=== PATIENT | male | born 1965 | race Caucasian/White ===

== ENCOUNTER 2016-04-06 21:43 | Emergency (ER) | payer BC ==
[2016-04-06] MEDS ORDERED: NORMAL SALINE 1,000 ML IV ONE (22:10)
--- NOTE | 2016-04-06 22:22 | ERNOTE ---
Medical Problem HPI - General Chief Complaint: General Assessment Time Seen by Provider: 04/06/16 22:14 Source: patient Exam Limitations: no limitations - Immun/Allergies/Home Medications Immunizations: IMMUNIZATION HX Immunizations Up to Date No History of Influenza Vaccine No Hx Pneumococcal Vaccination No Allergies/Adverse Reactions: Allergies No Known Allergies Allergy (Unverified 03/25/14 13:22) Home Medications: HOME MEDICATIONS Ondansetron HCl [Zofran] 1 - 2 mg PO Q8H PRN #10 tab 04/07/16 [Last Taken Unknown] - History of Present History Narrative: pt has had fatigue and shortness of breath for 3-5 days. Today he began to have N/V/D and had a syncopal episode on the toilet. striking his face on the wall Timing: getting worse Severity: moderate Review of Systems - Review of Systems Constitutional: Present: recent illness, chills, diaphoresis, fatigue EYE: Present: no symptoms reported ENT: Present: no symptoms reported Respiratory: Present: no symptoms reported Cardiology: Present: no symptoms reported Gastrointestinal/Abdominal: Present: See HPI Genitourinary: Present: decreased urinary output Musculoskeletal: Present: no symptoms reported Skin: Present: no symptoms reported Neurological: Present: no symptoms reported Endocrine: Present: no symptoms reported Hematologic/Lymphatic: Present: no symptoms reported - Patient's Past Medical History Patient History - Medical: No pertinent hx Patient History - Cancer: No Hx of Cancer - Social History Living Situations: home Smoking Status: Never smoker Alcohol Use: occasionally Drug Use: none Physical Exam - Physical Exam General Appearance: Present: wd/wn, alert, mild distress, sleeping/easy to arouse Eye Exam: Normal inspection: bilateral, PERRL: bilateral, EOMI: bilateral Ears, Nose, Throat: Present: other - abrasions, nose and forehead Neck: Present: normal inspection, nontender, supple, full range of motion Respiratory: Present: no respiratory distress, normal breath sounds, no accessory muscle use, chest nontender, lungs clear Cardiovascular/Chest: Present: regular rate, rhythm, no murmur, normal peripheral pulses Gastrointestinal/Abdominal: Present: tenderness - diffuse, abnormal bowel sounds - hyperactive Back Exam: Present: normal inspection, normal range of motion Extremity Exam: Present: normal inspection, normal range of motion Neurological Exam: Present: alert, oriented Skin Exam: Present: other - abrasions on forehead and nose Lymphatic Exam: Present: no adenopathy ED Progress - Results and Orders Patient's Lab Results:: I have reviewed the patient's lab results. Results and Orders: Laboratory Tests 04/06/16 04/06/16 04/06/16 22:35 22:35 23:59 WBC 9.6 Hgb 17.4 Hct 51.7 Plt Count 207 Sodium 141 Potassium 4.0 Chloride 103 Carbon Dioxide 26.7 Anion Gap 15.3 H BUN 19 Creatinine 1.32 Random Glucose 140 H Calcium 8.4 Total Bilirubin 0.9 AST 44 ALT 120 H Alkaline Phosphatase 46 L Total Protein 7.3 Albumin 3.9 Urine Color Yellow Urine Appearance Clear Urine pH 6.0 Ur Specific [place] 1.025 Urine Protein 30 H Urine Glucose (UA) Negative Urine Ketones 5 Urine Blood Negative Urine Nitrate Negative Urine Bilirubin 1 H Urine Ictotest Negative Prot Sulfosalicylic Acd Negative Urine Urobilinogen Normal Ur Leukocyte Esterase Negative Urine RBC 0-5 Urine WBC 0-5 Ur Epithelial Cells 0-5 Urine Bacteria None seen Urine Culture Comments No culture indicated - Vital Signs Patient's Vital Signs:: I have reviewed the patient's vital signs. Vital Signs: Vital Signs 04/06/16 21:53 Temperature 36.9 C Pulse Rate 59 L Respiratory 18 Rate Blood Pressure 93/53 O2 Sat by Pulse 93 Oximetry - Progress/Reassessment Chief Complaint: General Assessment Departure - Departure Clinical Impression: Syncope, vasovagal Disposition: Home self-care Condition: Fair Instructions: Rotavirus Infection, Adult, Rehydration, Adult, Vasovagal Syncope , Adult Additional Instructions: clear liquids for 6-12 hours after any vomiting. Follow up if not improving Prescriptions: Ondansetron HCl [Zofran] 1 - 2 mg PO Q8H PRN #10 tab PRN Reason: Nausea
[2016-04-06 22:38] LABS: Hematocrit 51.7 % (42.0-52.0); Hemoglobin 17.4 gm/dL (13.5-18.0); Mean Cell Volume 90.7 fl (78-100); Mean Corpuscular Hemoglobin 30.5 pg (27-31); Mean Corpuscular Hgb Conc 33.7 g/dl (32-36); Neutrophil # 8.6 K/mm3 (1.3-6.0); Platelet Count 207 K/mm3 (150-450); Red Cell Distribution Width 12.3 % (11.5-14.0); White Blood Count 9.6 K/mm3 (4.0-10.5)
[2016-04-06 22:54] LABS: Albumin * 3.9 gm/dl (3.4-5.0); Anion Gap 15.3 mmol/L (6.8-13.8); BUN/Creatinine Ratio 14.4 (9.0-21.6); Bilirubin, Total 0.9 mg/dL (0.0-1.1); Ca. Corrected For Albumin 8.2 mg/dL (8.4-10.2); Calcium * 8.4 mg/dL (7.9-10.9); Carbon Dioxide 26.7 mmol/L (24-32.6); Total Protein 7.3 gm/dL (6.2-8.2)
[2016-04-07 00:14] LABS: Urine Bilirubin 1 mg/dl (NEGATIVE); Urine Blood Negative /ul (NEGATIVE); Urine Ketone 5 mg/dL (NEGATIVE); Urine Nitrite Negative (NEGATIVE); Urine Protein 30 mg/dL (NEGATIVE); Urine Specific Gravity 1.025 SP.GR. (1.005-1.030); Urine Urobilinogen Normal (NORMAL)
[2016-04-07 00:15] LABS: Urine Appearance Clear; Urine Bacteria None Seen; Urine Color Yellow; Urine RBC 0-5 /hpf (0-5); Urine WBC 0-5 /hpf (0-5)
[2016-04-07] MEDS ORDERED: ONDANSETRON 4 MG TAB.RAPDIS PO ONE (00:48)
[2016-04-07 02:04] VITALS: BP 113/54
== END 2016-04-07 00:50 | disposition home or self-care (01) ==
LOC: ER 21:43
DX: R55 Syncope and collapse (principal)

== ENCOUNTER 2016-12-02 18:19 | Emergency (ER) | payer BC ==
[2016-12-02] MEDS ORDERED: KETOROLAC TROMETHAMINE 30 MG/ML VIAL IV ONE (19:01)
[2016-12-02] MEDS ORDERED: ACETAMINOPHEN 500 MG TABLET PO ONE (19:01)
[2016-12-02] MEDS ORDERED: KETOROLAC TROMETHAMINE 30 MG/ML VIAL ONE (19:03)
--- NOTE | 2016-12-02 19:09 | ERNOTE ---
Medical Problem HPI - Narrative Date of Service: 12/02/16 - General Chief Complaint: Fever Time Seen by Provider: 12/02/16 18:43 Source: patient, RN notes reviewed, old records Exam Limitations: no limitations - Immun/Allergies/Home Medications Immunizations: IMMUNIZATION HX Immunizations Up to Date No: unsure History of Influenza Vaccine No Hx Pneumococcal Vaccination No Allergies/Adverse Reactions: Allergies No Known Allergies Allergy (Unverified 03/25/14 13:22) Home Medications: HOME MEDICATIONS Amoxicillin/Potassium Clav [Augmentin 875-125 Tablet] 875 mg PO BID 12/02/16 [ Last Taken Unknown] predniSONE [Prednisone] 2 tab PO DAILY #8 tab 12/02/16 [Last Taken Unknown] - History of Present History Narrative: 51 year old male presents to the ER for a sore throat and weakness that began 4 days ago. He was seen in the walk in clinic yesterday. He tested negative for strep throat. He was given Rocephin 1 Gm and started on Augmentin. He was also given a one time dose of prednisone. He was febrile at that time. He currently has a 39.3 temp despite having ibuprofen less than 6 hours ago. He reports severe throat pain and difficulty swallowing. He denies a cough or sinus congestion. He also denies any sick contacts. Date (Duration): 11/28/16 Review of Systems - Review of Systems Constitutional: Present: fever, chills, malaise EYE: Present: no symptoms reported ENT: Present: sore throat. Absent: ear pain, nose congestion Respiratory: Absent: shortness of breath, cough Cardiology: Absent: chest pain, syncope Gastrointestinal/Abdominal: Present: eating less. Absent: nausea, vomiting, abdominal pain, drinking less Genitourinary: Absent: hematuria, decreased urinary output Musculoskeletal: Present: muscle pain, joint pain Skin: Absent: rash, lesions Neurological: Present: dizziness/light-headedness. Absent: headache Endocrine: Present: no symptoms reported Hematologic/Lymphatic: Present: no symptoms reported Psych: Present: no symptoms reported - Patient's Past Medical History Patient History - Medical: No pertinent hx Patient History - Cardiac/Respiratory: CVA/Stroke Patient History - Cancer: No Hx of Cancer Patient History - Surgical Procedures: Orthopedic Patient History - Other: None - Social History Living Situations: significant other Abuse History: No History of abuse Psych History: No pertinent hx Smoking Status: Never smoker Have you smoked in the past 12 months: No Do you dip or chew tobacco: Yes Alcohol Use: occasionally Drug Use: none - Immunizations Immunizations Up to Date: No - unsure Hx Pneumococcal Vaccination: No History of Influenza Vaccine: No Physical Exam - Physical Exam General Appearance: Present: wd/wn, alert, mild distress, other - Appears uncomfortable Eye Exam: Normal inspection: bilateral, PERRL: bilateral Ears, Nose, Throat: Present: pharyngeal erythema, tonsillar swelling. Absent: abnormal TM (R), abnormal TM (L), nasal congestion, sinus pain/drainage, tonsillar exudate, dry mucous membranes Neck: Present: normal inspection, nontender, supple, full range of motion Respiratory: Present: no respiratory distress, normal breath sounds, no accessory muscle use, lungs clear Cardiovascular/Chest: Present: regular rate, rhythm, no murmur Extremity Exam: Present: normal inspection, normal range of motion, no edema Neurological Exam: Present: alert, oriented, normal mood/affect, no motor/ sensory deficits Skin Exam: Present: normal color, warm/dry ED Progress - Results and Orders Patient's Lab Results:: I have reviewed the patient's lab results. - Vital Signs Patient's Vital Signs:: I have reviewed the patient's vital signs. Vital Signs: Vital Signs 12/02/16 18:33 Temperature 39.3 C H Pulse Rate 121 H Respiratory 18 Rate Blood Pressure 103/54 O2 Sat by Pulse 99 Oximetry - Progress/Reassessment Chief Complaint: Fever Progress:: Improved Plan - Plan Plan: Temp improving with Tylenol. Patient has no symptoms aside from his sore throat to suggest any other etiology for his fever aside from pharyngitis. 2 day strep from yesterday is still pending. Lactic acid and WBC were normal today. A blood culture is pending. SoluMedrol given IV for throat pain and inflammation and rx for 4 days of prednisone. To continue Augmentin. Agreeable to returning over the weekend if symptoms worsen or on Monday for recheck if no improvement. Departure - Departure Clinical Impression: Fever Qualifiers: Fever type: unspecified Qualified Code(s): R50.9 - Fever, unspecified Acute pharyngitis Qualifiers: Pharyngitis/tonsillitis etiology: unspecified etiology Qualified Code(s): J02.9 - Acute pharyngitis, unspecified Disposition: Home Follow Up Needed Condition: Stable Instructions: Fever, Adult, Pharyngitis, [id number] Additional Instructions: Continue Augmentin Start prednisone tomorrow Tylenol and ibuprofen for fever Drink plenty of liquids REST Return to the ER if your symptoms worsen over the weekend, or if you have not significantly improved by Monday Prescriptions: predniSONE [Prednisone] 2 tab PO DAILY #8 tab
[2016-12-02] MEDS: NORMAL SALINE 1,000 ML IV SCH ×2 (19:15→20:28)
[2016-12-02 19:20] LABS: Hematocrit 49.1 % (42.0-52.0); Hemoglobin 16.8 gm/dL (13.5-18.0); Mean Cell Volume 90.4 fl (78-100); Mean Corpuscular Hemoglobin 30.9 pg (27-31); Mean Corpuscular Hgb Conc 34.2 g/dl (32-36); Mean Platelet Volume 10.3 fl (6.0-9.5); Neutrophil # 7.2 K/mm3 (1.3-6.0); Neutrophil % 79.4 % (42-75.0); Platelet Count 222 K/mm3 (150-450); Red Blood Count 5.43 M/mm3 (4.7-6.0); Red Cell Distribution Width 12.4 % (11.5-14.0); White Blood Count 9.1 K/mm3 (4.0-10.5)
[2016-12-02 19:33] LABS: Albumin * 3.9 gm/dl (3.4-5.0); Anion Gap 15.9 mmol/L (6.8-13.8); BUN/Creatinine Ratio 18.5 (9.0-21.6); Ca. Corrected For Albumin 8.7 mg/dL (8.4-10.2); Calcium * 8.9 mg/dL (7.9-10.9); Potassium 3.9 mmol/L (3.4-4.6); Total Protein 8.6 gm/dL (6.2-8.2)
[2016-12-02 19:51] VITALS: BP 124/65
[2016-12-02] MEDS ORDERED: METHYLPREDNISOLONE SOD SUCC/PF 125 MG/2 ML VIAL IV ONE (20:16)
[2016-12-02] MEDS ORDERED: METHYLPREDNISOLONE SOD SUCC/PF 125 MG/2 ML VIAL ONE (20:19)
== END 2016-12-02 20:30 | disposition home or self-care (01) ==
LOC: ER 18:19
DX: J02.9 Acute pharyngitis, unspecified (principal); R50.9 Fever, unspecified